=== PATIENT | female | born 1990 | race Caucasian/White ===

== ENCOUNTER 2016-09-30 22:03 | Outpatient (CLI) | payer OTHER ==
[~2016-09-30] VITALS: Ht 170.2 cm; Wt 98.0 kg
[2016-09-30 22:47] VITALS: BP 131/68
[2016-09-30 22:50] LABS: AMNI OBC PASS; AMNISURE NEGATIVE (NEGATIVE)
[2016-10-01 01:52] LABS: DAU SCREEN DISCLAIMER
== END 2016-10-01 01:30 | disposition home or self-care (01) ==
LOC: LDOP 22:03
PROVIDERS: ATTEND Student in an Organized Health Care Education/Training Program
DX: O42.913 Preterm premature rupture of membranes, unspecified as to length of time between rupture and onset of labor, third trimester (principal); O36.8130 Decreased fetal movements, third trimester, not applicable or unspecified; O99.333 Smoking (tobacco) complicating pregnancy, third trimester; F17.200 Nicotine dependence, unspecified, uncomplicated; Z3A.36 36 weeks gestation of pregnancy
CPT/HCPCS: 59025; 76815; 80307; 84112; 87081; 99211; G0463

== ENCOUNTER 2016-10-18 01:06 | Inpatient (IN) | payer OTHER ==
[~2016-10-18] VITALS: Ht 170.2 cm; Wt 98.0 kg
[2016-10-18 01:30] LABS: DAU SCREEN DISCLAIMER
[2016-10-18] MEDS ORDERED: OXYTOCIN 30U/ 0.9% NaCL 500ML 500 ML IV ONE (01:50)
[2016-10-18] MEDS ORDERED: D5%-LACTATED RINGERS 1,000 ML IV SCH (01:50)
[2016-10-18] MEDS ORDERED: OXYTOCIN 30U/ 0.9% NaCL 500ML 500 ML IV PRN (01:50)
[2016-10-18] MEDS ORDERED: ONDANSETRON 2MG/ML, 2ML IVPush PRN ×2 (02:00→20:30)
[2016-10-18] MEDS ORDERED: CALCIUM CARBONATE 500 MG TAB.CHEW PO PRN ×2 (02:00→22:00)
[2016-10-18] MEDS ORDERED: FENTANYL PF 100 MCG/2ML IVPush PRN (02:00)
[2016-10-18] MEDS ORDERED: FENTANYL PF 100 MCG/2ML IV PRN ×2 (02:00→20:30)
[2016-10-18] MEDS ORDERED: TERBUTALINE 1 MG/ML, 1ML IVPush PRN (02:00)
[2016-10-18] MEDS: LACTATED RINGERS 1,000 ML IV SCH ×7 (02:01→21:48)
[2016-10-18] MEDS ORDERED: OXYTOCIN 30U/ 0.9% NaCL 500ML 500 ML ONE (02:37)
[2016-10-18] MEDS ORDERED: NEWBORN KIT ONE (02:37)
[2016-10-18] MEDS ORDERED: FENTANYL PF 100 MCG/2ML ONE (08:08)
[2016-10-18] MEDS ORDERED: FENTANYL/BUPIV./NS/PF 250 ML EPIDCONT ONE (09:33)
[2016-10-18] MEDS ORDERED: LACTATED RINGERS 1,000 ML IVBOLUS PRN (12:30)
[2016-10-18] MEDS: FENTANYL/BUPIV./NS/PF 250 ML EPIDCONT SCH (12:30)
[2016-10-18] MEDS ORDERED: LACTATED RINGERS 1,000 ML INTUTE PRN (17:30)
[2016-10-18] MEDS ORDERED: METOCLOPRAMIDE 5 MG/ML, 2ML ONE (19:03)
[2016-10-18] MEDS ORDERED: SODIUM CITRATE/CITRIC ACID 30 ML UDC ONE (19:03)
[2016-10-18] MEDS ORDERED: LIDOCAINE/MPF 2%-EPI 1:200K, 20 ML ONE (19:08)
[2016-10-18] MEDS ORDERED: SODIUM BICARBONATE 1 MEQ/ML, 50ML VIAL ONE (19:09)
[2016-10-18] MEDS ORDERED: METOCLOPRAMIDE 5 MG/ML, 2ML IV ONE (19:30)
[2016-10-18] MEDS ORDERED: SODIUM CITRATE/CITRIC ACID 30 ML UDC PO ONE (19:30)
[2016-10-18] MEDS ORDERED: OXYTOCIN 30U/ 0.9% NaCL 500ML 500 ML IV SCH ×2 (19:43→20:29)
[2016-10-18] MEDS ORDERED: LACTATED RINGERS 1,000 ML IV SCH (19:43)
[2016-10-18] MEDS ORDERED: IBUPROFEN 600 MG TABLET PO PRN ×2 (20:30→22:00)
[2016-10-18] MEDS ORDERED: ONDANSETRON 2MG/ML, 2ML IV PRN ×2 (20:30→22:00)
[2016-10-18] MEDS ORDERED: HYDROcodone/APAP 5/325 TABLET PO PRN (20:30)
[2016-10-18] MEDS ORDERED: ACETAMINOPHEN 325 MG TABLET PO PRN ×2 (20:30→22:00)
[2016-10-18] MEDS ORDERED: morphine SULFATE 10 MG/ML, 1ML IV PRN (20:30)
[2016-10-18] MEDS ORDERED: MEPERIDINE/PF 25MG/0.5ML IVPush PRN (20:30)
[2016-10-18] MEDS ORDERED: METOCLOPRAMIDE 5 MG/ML, 2ML IV PRN ×2 (20:30→22:00)
[2016-10-18] MEDS ORDERED: OXYcodone/APAP 5/325MG TABLET PO PRN (20:30)
[2016-10-18] MEDS ORDERED: DOCUSATE 100 MG CAPSULE PO PRN (20:30)
[2016-10-18] MEDS ORDERED: OXYcodone 5 MG/5 ML ORAL.SOL UDC PO PRN (20:30)
[2016-10-18] MEDS: OXYTOCIN 30U/ 0.9% NaCL 500ML 500 ML IV SCH (21:48)
[2016-10-18] MEDS ORDERED: SIMETHICONE 80 MG CHEW TAB PO PRN (22:00)
[2016-10-18] MEDS: KETOROLAC 30 MG/1 ML IV SCH (22:47)
[2016-10-18] MEDS: OXYcodone/APAP 5/325MG TABLET PO PRN (23:38)
[2016-10-19] VITALS: BP 128/70
[2016-10-19] MEDS: LACTATED RINGERS 1,000 ML IV SCH ×8 (04:30→21:48)
[2016-10-19] MEDS: OXYcodone/APAP 5/325MG TABLET PO PRN ×5 (04:32→22:17)
[2016-10-19] MEDS: KETOROLAC 30 MG/1 ML IV SCH ×3 (04:33→17:48)
[2016-10-19 04:35] VITALS: BP 123/69
[2016-10-19] MEDS: OXYTOCIN 30U/ 0.9% NaCL 500ML 500 ML IV SCH ×2 (07:48→17:48)
[2016-10-19 07:50] VITALS: BP 112/64
[2016-10-19] MEDS ORDERED: PRENATAL VIT/IRON/FA 1 EACH TABLET PO SCH (09:00)
[2016-10-19] MEDS: FENTANYL/BUPIV./NS/PF 250 ML EPIDCONT SCH (09:20)
[2016-10-19] MEDS: PRENATAL VIT/IRON/FA 1 EACH TABLET PO SCH (09:54)
[2016-10-19] MEDS: DOCUSATE 100 MG CAPSULE PO PRN ×2 (09:54→22:17)
[2016-10-19] MEDS ORDERED: CEFAZOLIN 1,000 MG ONE (11:52)
[2016-10-19] MEDS ORDERED: KETOROLAC 30 MG/1 ML ONE (11:52)
[2016-10-19 12:40] VITALS: BP 120/73
[2016-10-19 16:00] VITALS: BP 125/69
[2016-10-19 21:05] VITALS: BP 120/66
[2016-10-20] MEDS: KETOROLAC 30 MG/1 ML IV SCH ×2 (00:27→06:23)
[2016-10-20] MEDS: OXYcodone/APAP 5/325MG TABLET PO PRN ×3 (02:10→10:39)
[2016-10-20] MEDS: LACTATED RINGERS 1,000 ML IV SCH ×3 (03:13→03:14)
[2016-10-20] MEDS: OXYTOCIN 30U/ 0.9% NaCL 500ML 500 ML IV SCH (03:14)
[2016-10-20] MEDS: FENTANYL/BUPIV./NS/PF 250 ML EPIDCONT SCH (06:10)
[2016-10-20 07:45] VITALS: BP 119/79
[2016-10-20] MEDS: PRENATAL VIT/IRON/FA 1 EACH TABLET PO SCH (09:00)
[2016-10-20] MEDS ORDERED: IBUP800T PO (09:49)
[2016-10-20] MEDS ORDERED: OXYC-302 PO (09:49)
[2016-10-20] MEDS ORDERED: DOCU-30 PO (09:50)
[2016-10-20] MEDS ORDERED: DIPH,PERTUSS(ACELL),TET VAC/PF NC IM-VACC ONE ×2 (10:08)
== END 2016-10-20 11:10 | disposition home or self-care (01) | DRG 766 ==
LOC: LDOP 01:06 → LDIP 01:37 → 2NW 22:08
PROVIDERS: ADMIT Specialist; ATTEND Specialist
PROC: 10D00Z1 Extraction of Products of Conception, Low, Open Approach (ICD-10-PCS; principal; 2016-10-18)
DX: O42.92 Full-term premature rupture of membranes, unspecified as to length of time between rupture and onset of labor (principal); Z37.0 Single live birth; Z3A.39 39 weeks gestation of pregnancy; O76 Abnormality in fetal heart rate and rhythm complicating labor and delivery; O62.2 Other uterine inertia
CPT/HCPCS: 36415; 80307; 85025; 86850; 86900; 89060; 90715; J0690; J1885; J3490; J2590; J2765; J3010; J7120; J7121; Q0114